=== PATIENT | male | born 1955 | race Hispanic/Latino ===

== ENCOUNTER 2018-05-05 07:14 | Day surgery (SDC) | payer OTHER ==
[2018-05-05 07:36] VITALS: BMI 25.1
[2018-05-05] MEDS ORDERED: Propofol 10 mg/ml Inj (20 ML) ONE (10:06)
[2018-05-05 11:20] VITALS: RESP 10; TEMP 97; O2SAT 98
[2018-05-05 11:39] VITALS: BP 118/71; PULSE 58
== END 2018-05-05 12:00 | disposition home or self-care (01) ==
LOC: H.ENDO 07:14
PROVIDERS: ATTEND Internal Medicine Gastroenterology
DX: Z86.010 Personal history of colon polyps (principal); E11.9 Type 2 diabetes mellitus without complications; K64.1 Second degree hemorrhoids; D12.5 Benign neoplasm of sigmoid colon; D12.2 Benign neoplasm of ascending colon
CPT/HCPCS: 45380; 45385; 82948; 88305; J2001; J2704; J3010